=== PATIENT | female | born 2000 | race Two or more races ===

== ENCOUNTER → 2024-11-18 | Outpatient (REF) | payer OTHER ==
[~2024-11-18] MED LIST: ACET-683 PO; COLA100C5 PO; IBUP80TA PO; OXYC-517 PO; PRENCHW PO
== END ==
LOC: M SFHCWAGY 15:09
PROVIDERS: ATTEND Specialist
DX: Z34.83 Encounter for supervision of other normal pregnancy, third trimester (principal)

== ENCOUNTER → 2025-06-10 | Outpatient (REF) | payer OTHER ==
[~2025-06-10] MED LIST changes: +OXYC1TAB23 PO
== END ==
LOC: M PLALAB 08:56
PROVIDERS: ATTEND Physician Assistant
DX: R30.0 Dysuria (principal)